=== PATIENT | female | born 1935 | race Caucasian/White ===

== ENCOUNTER → 2016-10-03 | Outpatient (CLI) | payer MEDICARE, OTHER | END | disposition home or self-care (01) | LOC: BFHH 12:43 | PROVIDERS: ATTEND Family Medicine | DX: I10 Essential (primary) hypertension (principal); E11.42 Type 2 diabetes mellitus with diabetic polyneuropathy ==

== ENCOUNTER 2017-01-11 03:44 | Emergency (ER) | payer MEDICARE, OTHER ==
--- NOTE | 2017-01-11 05:10 | CT ---
EXAM DESCRIPTION: Head CLINICAL HISTORY: tripped, fall from standing, some neck pain COMPARISON: March 31, 2016 TECHNIQUE: Contiguous axial images of the brain were obtained without the administration of intravenous contrast. This exam was performed according to our departmental dose-optimization program, which includes automated exposure control, adjustment of the mA and/or kV according to patient size and/or use of iterative reconstruction technique. FINDINGS: Focal area of increased attenuation at the level of the posterior interhemispheric fissure compatible with a small subdural hematoma. This measured approximately 4 mm in transverse diameter. Patient is status post left craniotomy. There is no mass effect. Areas of decreased attenuation within the periventricular and subcortical white matter are nonspecific osseous of small vessel disease. There is generalized atrophy. Ventricular system is within normal limits. There is adequate lara-white matter differentiation. There is no skull fracture. The visualized paranasal sinuses and mastoid air cells are within normal limits. IMPRESSION: Findings compatible with a small subdural hematoma at the level of the posterior interhemispheric fissure. There is no mass effect. Electronically signed by: Madhu Lujan MD 01/11/2017 5:11 AM CDT
--- NOTE | 2017-01-11 05:16 | CT ---
EXAM DESCRIPTION: CT CERVICAL SPINE CLINICAL HISTORY: tripped, fall from standing, some neck pain COMPARISON: None Available. TECHNIQUE: Contiguous axial images of the cervical spine were obtained followed by reconstruction images.This exam was performed according to our departmental dose-optimization program, which includes automated exposure control, adjustment of the mA and/or kV according to patient size and/or use of iterative reconstruction technique. FINDINGS: There is no acute fracture or subluxation. The prevertebral soft tissues are within normal limits. There are degenerative changes of the cervical spine with intervertebral disc space narrowing and osteophytic formation from C3-C4 to C7-T1. Large posterior osteophytic formation is noted at C5-C6 and C6-C7. Incidental note is of a 5 x 3.3 mm noncalcified pulmonary nodule within the medial aspect of the left upper lung, image 87. IMPRESSION: No acute fracture or subluxation. Degenerative changes. Noncalcified pulmonary nodule within the medial aspect of the left upper lung with mean diameter of 4 mm. 2017 Fleischner Society Recommendations for Single Solid Lung Nodule Follow-Up based on size (average of long- and short-axis diameters) <6 mm Low-Risk Patient: No routine follow-up <6 mm High-Risk Patient: Optional CT at 12 months Electronically signed by: Madhu uLjan MD 01/11/2017 5:16 AM CDT Workstation: [id number]
--- NOTE | 2017-01-11 05:47 | ED.PDOC ---
History of Present Illness - General Source: patient Exam Limitations: no limitations - History of Present Illness Initial Comments: the patient is an 81-year-old female presenting to the emergency room after having fallen at home while coming back to the bed from going to the bathroom. She apparently tripped and fell forward and hit was probably a nightstand with the back of her head behind her left ear. There was no loss of consciousness. She did have some trouble getting up but that was not new. No altered mental status. She is having some mild neck discomfort down around C3- C4 primarily in the paraspinal muscles and at the atlantooccipital junction. It is worse with palpation. She has no neurological changes. She moves all extremity as well. No new incontinence. The patient would not have presented to the emergency room if she had not had an intracranial hemorrhage several years ago that required evacuation. The patient apparently also fell yesterday. Looking back over her history she has had multiple falls in the past. Again upon arrival tonight here she appears to be at her baseline neurological status. The person that knows her has confirmed that. Timing/Duration: momentarily Severity: moderate Improving Factors: immobilization Worsening Factors: movement Associated Symptoms: denies symptoms <Gomez Luong L - Last Filed: 01/11/17 06:41> <Jamari Bill - Last Filed: 01/11/17 09:21> - General Chief Complaint: Trauma Stated Complaint: fall Time Seen by Provider: 01/11/17 04:14 - History of Present Illness Allergies/Adverse Reactions: Allergies Shellfish Allergy Allergy (Intermediate, Verified 12/28/15 16:33) Rash Unknown if allergic to IV contrast. Home Medications: Ambulatory Orders Alendronate Sodium [Fosamax] 70 mg PO WKLY 09/18/14 Atorvastatin Calcium [Lipitor] 20 mg PO BEDTIME 09/18/14 Furosemide [Lasix] 20 mg PO DAILY 09/18/14 Glimepiride 1 mg PO DAILY 09/18/14 Lamotrigine [Lamictal] 200 mg PO BID 09/18/14 Levetiracetam [Keppra] 500 mg PO BID 09/18/14 Mirtazapine [Remeron] 30 mg PO BEDTIME 09/18/14 Multiple Vitamins W/ Minerals [Multivitamin] 1 dose PO DAILY 09/18/14 Olmesartan Medoxomil [Benicar] 40 mg PO DAILY 09/18/14 Potassium Chloride Tab [Micro-K] 10 meq PO DAILY 09/18/14 Sitagliptin Phosphate [Januvia] 100 mg PO DAILY 09/18/14 Buspirone HCl 15 mg PO DAILY 02/04/16 Donepezil Hydrochloride [Aricept] 10 mg PO DAILY 02/04/16 Escitalopram [Lexapro] 10 mg PO DAILY 01/11/17 Oxybutynin Chloride 5 mg PO BID 01/11/17 Review of Systems - Review of Systems Constitutional: States: no symptoms reported EENTM: States: no symptoms reported Respiratory: States: no symptoms reported Cardiology: States: no symptoms reported Gastrointestinal/Abdominal: States: no symptoms reported Genitourinary: States: no symptoms reported Musculoskeletal: States: neck pain - mild as described above Skin: States: no symptoms reported Neurological: States: headache - very mild but only over the area where she impacted the nightstand Endocrine: States: no symptoms reported All other Systems: No Change from Baseline <Gomez Luong - Last Filed: 01/11/17 06:41> Past Medical History (General) - Patient Medical History Hx Seizures: Yes Hx Stroke: Yes Hx Dementia: No Hx Asthma: No Hx of COPD: Yes Hx Cardiac Disorders: Yes Hx Congestive Heart Failure: No Hx Pacemaker: No Hx Hypertension: Yes Hx Thyroid Disease: No Hx Diabetes: Yes Hx Gastroesophageal Reflux: No Hx Renal Disease: No Hx Cancer: Yes - Lung Hx of HIV: No Hx Hepatitis C: No Hx MRSA: No - Vaccination History Hx Tetanus, Diphtheria Vaccination: No Hx Influenza Vaccination: Yes Hx Pneumococcal Vaccination: Yes - Social History Hx Tobacco Use: No Hx Chewing Tobacco Use: No Hx Alcohol Use: No Hx Substance Use: No Hx Substance Use Treatment: No Hx Depression: No Feels Threatened In Home Enviroment: No Feels Threatened In a Relationship: No Hx Physical Abuse: No Hx Emotional Abuse: No Hx Suspected Abuse: No - Female History Patient is a Female of Child Bearing Age (10 -59 yrs old): No Patient : No <Gomez Luong - Last Filed: 01/11/17 06:41> Family Medical History - Family History Mother Family History: Unknown Living Status: Hx Family Asthma: No Hx Family Congestive Heart Failure: No Hx Family Hypertension: No Hx Family Stroke: No Hx Cardiac Disease: Yes Hx Family Diabetes: No Hx Family Cancer: Yes <Gomez Luong - Last Filed: 01/11/17 06:41> Physical Exam - Physical Exam General Appearance: Alert, Comfortable, No apparent distress Eye Exam: bilateral normal Ears, Nose, Throat: hearing grossly normal, normal ENT inspection, normal pharynx - no evidence of any basilar skull fracture. No evidence of CSF drainage from the nares or tympanic membranes. There is no crepitus over the impact area behind the left ear. No visible deformity or bruising. Neck: full range of motion, other - she does have areas of discomfort as described in the history of present illness. No evidence of significant step- offdeviation. Respiratory: chest non-tender, lungs clear, normal breath sounds, no respiratory distress, no accessory muscle use Cardiovascular/Chest: normal peripheral pulses, no edema, other - regular rate Peripheral Pulses: radial,right: 2+, radial,left: 2+, dorsalis pedis,right: 2+, dorsalis pedis,left: 2+, posterior tibialis,right: 2+, posterior tibialis,left: 2+ Gastrointestinal/Abdominal: non tender, soft Rectal Exam: deferred Back Exam: normal inspection, no CVA tenderness, no vertebral tenderness Extremity: normal range of motion, non-tender, normal inspection, no pedal edema , normal capillary refill 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 The patient is presenting due to a history of an intracranial hemorrhage in the distant past that required evacuation and the fact that she is having some mild neck discomfort after the fall. There was no loss of consciousness and the patient is having no new neurological abnormalities whatsoever. vital signs have been stable. CT scan of the cervical spine shows no evidence of any acute injury. She does have chronic changes. The cervical collar has been removed as it is causing her significantly more discomfort than leaving it off. the CT scan of the head shows a 4 mm posterior subdural hematoma. The timing of the scan was approximately 1 hour after the most recent fall and more than 24 hours after the fall before that. as this is at this point a very small hematoma, and the patient is clinically asymptomatic from it, the patient will be monitored here in the emergency room for an additional 3-4 hours and have the CT scan repeated. If there is minimal change in that timeframe then it may be appropriate contact Dr. Serna and arranged for admission and monitoring here for the next day or 2 given her history, and the low likelihood for the need for neurosurgical intervention. Baseline laboratory work has been sent. 01/11/17 06:41 the patient does have a mild worsening of her hyponatremia and anemia. These may be contributing to the falls over the last couple of days. The patient is receiving a small IV fluid bolus given her mild deterioration in renal function. Urinalysis is still pending at this time. The patient will be handed often followed by . - Results/Orders Results/Orders: Laboratory Tests 01/11/17 01/11/17 01/11/17 05:47 05:47 05:47 WBC 5.6 RBC 2.79 L Hgb 9.1 L Hct 26.2 L MCV 93.7 MCH 32.6 H MCHC 34.8 RDW 15.9 H Plt Count 205 MPV 6.6 L Absolute Neuts (auto) 4.60 Absolute Lymphs (auto) 0.40 L Absolute Monos (auto) 0.50 Absolute Eos (auto) 0.00 Absolute Basos (auto) 0.00 Neutrophils % 83.1 H Lymphocytes % 7.2 L Monocytes % 8.4 Eosinophils % 0.6 L Basophils % 0.7 PT 13.0 H INR 1.150 PTT (SP) 26.1 Sodium 130 L Potassium 4.8 Chloride 98 L Carbon Dioxide 27 Anion Gap 9.8 L BUN 17 Creatinine 1.40 H BUN/Creatinine Ratio 12.1 Random Glucose 188 H Serum Osmolality 267.3 L Calcium 8.6 Total Bilirubin 0.6 AST 17 ALT 14 Alkaline Phosphatase 56 Serum Total Protein 5.9 L Albumin 3.3 Globulin 2.6 Albumin/Globulin Ratio 1.3 - EKG/XRAY/CT CT Ordered: No CT Interpretation Call Back: No <Gomez Luong - Last Filed: 01/11/17 06:41> - Results/Orders Results/Orders: 0745h- easily arousable talking no focal neurodeficits ;no nausea,vomiting , blurry vision or headache. bucag 0750-repeat head ct ordered [id number] done stable midline subdural hematoma no progression no midline shift - EKG/XRAY/CT XRAY: c-spine ct disc narrowing with osteophte formation/radiologist. CT: head w/o-small subdural hematoma level of posterior interhemisoheric fissur CT Ordered: Yes - no mass effect noted <Jamari Bill - Last Filed: 01/11/17 09:21> Departure <Gomez Luong - Last Filed: 01/11/17 06:41> - Departure Time of Disposition: 09:19 - D/W Dr. Murray for transfer to [facility] <Jamari Bill R - Last Filed: 01/11/17 09:21> - Departure Clinical Impression: Subdural hematoma, acute Fall at home Qualifiers: Encounter type: initial encounter Qualified Code(s): W19.XXXA - Unspecified fall, initial encounter Disposition: Transfer to Hospital Condition: Fair Referrals: Noel Woods MD [Primary Care Provider] - 1-2 Weeks Home Medications: Ambulatory Orders Alendronate Sodium [Fosamax] 70 mg PO WKLY 09/18/14 Atorvastatin Calcium [Lipitor] 20 mg PO BEDTIME 09/18/14 Furosemide [Lasix] 20 mg PO DAILY 09/18/14 Glimepiride 1 mg PO DAILY 09/18/14 Lamotrigine [Lamictal] 200 mg PO BID 09/18/14 Levetiracetam [Keppra] 500 mg PO BID 09/18/14 Mirtazapine [Remeron] 30 mg PO BEDTIME 09/18/14 Multiple Vitamins W/ Minerals [Multivitamin] 1 dose PO DAILY 09/18/14 Olmesartan Medoxomil [Benicar] 40 mg PO DAILY 09/18/14 Potassium Chloride Tab [Micro-K] 10 meq PO DAILY 09/18/14 Sitagliptin Phosphate [Januvia] 100 mg PO DAILY 09/18/14 Buspirone HCl 15 mg PO DAILY 02/04/16 Donepezil Hydrochloride [Aricept] 10 mg PO DAILY 02/04/16 Escitalopram [Lexapro] 10 mg PO DAILY 01/11/17 Oxybutynin Chloride 5 mg PO BID 01/11/17
[2017-01-11] MEDS ORDERED: SODIUM CHLORIDE 0.9% 1000ML 750 ML IVS ONE (06:40)
--- NOTE | 2017-01-11 08:25 | CT ---
EXAM DESCRIPTION: Head CLINICAL HISTORY: 81 years, Female, Comparison of recent CT head; fall; bleed noted TECHNIQUE: 5mm slice thickness axial images through the brain were performed in the absence of intravenous contrast. This exam was performed according to our departmental dose-optimization program which includes use of Automated Exposure Control, adjustment of the mA and/or kV according to patient size and/or use of iterative reconstruction technique. COMPARISON: Head CT dated 01/11/2017 at 4:53 AM FINDINGS: Involutional changes are present. Hypoattenuation involves the periventricular deep white matter. A small focus of acute subdural hemorrhage lies along the midline falx (axial image 21). This hematoma measures up to 3 mm in diameter and extends over approximately 2.4 cm in length. No additional intracranial hemorrhage is seen. In the interval since the prior study, there has been no significant change. The lateral ventricles are not out of proportion to the degree of involution. The basal cisterns are patent. Vascular calcifications are present. The visualized paranasal sinuses and mastoid air cells are patent. No fracture is identified. Incidental note is made of previous left-sided craniotomy with a small focus of underlying encephalomalacia. IMPRESSION: Stable small midline subdural hematoma. Microvascular disease. Old left-sided craniotomy. Findings were discussed by Dr. Durham with Dr. Ji at 8:23 AM on 01/11/2017. Electronically signed by: Nadya Durham MD 01/11/2017 8:25 AM CDT
[2017-01-11 10:33] VITALS: BP 130/62; TEMP 97.7; O2SAT 97
== END 2017-01-11 10:15 | disposition short-term general hospital (02) ==
LOC: ER 03:44
DX: S06.5X0A Traumatic subdural hemorrhage without loss of consciousness, initial encounter (principal); J44.9 Chronic obstructive pulmonary disease, unspecified; Z86.73 Personal history of transient ischemic attack (TIA), and cerebral infarction without residual deficits; D64.9 Anemia, unspecified; E87.1 Hypo-osmolality and hyponatremia; E11.9 Type 2 diabetes mellitus without complications; Z85.118 Personal history of other malignant neoplasm of bronchus and lung; Z91.013 Allergy to seafood; Z79.899 Other long term (current) drug therapy; W01.190A Fall on same level from slipping, tripping and stumbling with subsequent striking against furniture, initial encounter; Y92.003 Bedroom of unspecified non-institutional (private) residence as the place of occurrence of the external cause
CPT/HCPCS: 36415; 70450; 72125; 80053; 85025; 85610; 85730; J7030

== ENCOUNTER → 2017-07-30 | Outpatient (CLI) | payer MEDICARE, MEDICAID | END | disposition home or self-care (01) | LOC: GMAH 11:22 | PROVIDERS: ATTEND Family Medicine | DX: E78.00 Pure hypercholesterolemia, unspecified (principal); I10 Essential (primary) hypertension; E11.9 Type 2 diabetes mellitus without complications ==

== ENCOUNTER → 2018-04-29 | Outpatient (CLI) | payer MEDICAID, MEDICARE, OTHER | LOC: NC 09:25 | PROVIDERS: ATTEND Family Medicine | DX: I10 Essential (primary) hypertension (principal); E11.40 Type 2 diabetes mellitus with diabetic neuropathy, unspecified; C34.90 Malignant neoplasm of unspecified part of unspecified bronchus or lung; F03.90 Unspecified dementia, unspecified severity, without behavioral disturbance, psychotic disturbance, mood disturbance, and anxiety ==

== ENCOUNTER 2019-02-01 03:50 | Emergency (ER) | payer MEDICARE, OTHER ==
--- NOTE | 2019-02-01 03:58 | ED.PDOC ---
History of Present Illness - General Chief Complaint: Trauma Stated Complaint: fall with skin tears Time Seen by Provider: 02/01/19 03:55 Source: patient - History of Present Illness Initial Comments: Patient fell this morning and struck her elbow. She also fell this evening and struck her knee. She has no pain complaints. Her daughter wanted her "checked out". She has quarter size skin tears on her right elbow and right know. Denies hitting her head. She does not take blood thinners. No other complaints. Timing/Duration: intermittent Severity: mild Worsening Factors: nothing Associated Symptoms: denies symptoms Allergies/Adverse Reactions: Allergies Shellfish Allergy Allergy (Intermediate, Verified 02/01/19 04:18) Rash Unknown if allergic to IV contrast. Home Medications: Ambulatory Orders Alendronate Sodium [Fosamax] 70 mg PO WKLY 09/18/14 Furosemide [Lasix] 20 mg PO ITA-OTH-DAY 09/18/14 Glimepiride 1 mg PO DAILY 09/18/14 Lamotrigine [Lamictal] 200 mg PO BID 09/18/14 Mirtazapine [Remeron] 30 mg PO BEDTIME 09/18/14 Multiple Vitamins W/ Minerals [Multivitamin] 1 dose PO DAILY 09/18/14 Olmesartan Medoxomil [Benicar] 40 mg PO DAILY 09/18/14 Potassium Chloride Tab [Micro-K] 10 meq PO ITA-OTH-DAY 09/18/14 Sitagliptin Phosphate [Januvia] 100 mg PO DAILY 09/18/14 Donepezil Hydrochloride [Aricept] 5 mg PO DAILY 02/04/16 Oxybutynin Chloride 5 mg PO BID 01/11/17 Clobetasol Propionate 0.05 % TOP BID 02/01/19 Ferrous Gluconate [Fergon] 240 mg PO DAILY 02/01/19 Ondansetron HCl [Zofran] 8 mg PO Q8HRS PRN 02/01/19 Sulfa/Trimeth 800/160 (Ds) Tab [Bactrim DS] 1 tablet PO BID #6 tablet 02/01/19 Review of Systems - Review of Systems Constitutional: States: no symptoms reported EENTM: States: no symptoms reported Respiratory: States: no symptoms reported Cardiology: States: no symptoms reported Gastrointestinal/Abdominal: States: no symptoms reported Genitourinary: States: no symptoms reported Musculoskeletal: States: see HPI Skin: States: see HPI Neurological: States: no symptoms reported Endocrine: States: no symptoms reported Hematologic/Lymphatic: States: no symptoms reported Past Medical History (General) - Patient Medical History Hx Seizures: Yes Hx Stroke: Yes Hx Dementia: No Hx Asthma: No Hx of COPD: Yes Hx Cardiac Disorders: Yes Hx Congestive Heart Failure: No Hx Pacemaker: No Hx Hypertension: Yes Hx Thyroid Disease: No Hx Diabetes: Yes Hx Gastroesophageal Reflux: No Hx Renal Disease: No Hx Cancer: Yes - Lung Hx of HIV: No Hx Hepatitis C: No Hx MRSA: No - Vaccination History Hx Tetanus, Diphtheria Vaccination: No Hx Influenza Vaccination: Yes Hx Pneumococcal Vaccination: Yes - Social History Hx Tobacco Use: No Hx Chewing Tobacco Use: No Hx Alcohol Use: No Hx Substance Use: No Hx Substance Use Treatment: No Hx Depression: No Hx Physical Abuse: No Hx Emotional Abuse: No Hx Suspected Abuse: No - Female History Patient : No Family Medical History - Family History Mother Family History: Unknown Living Status: Hx Family Asthma: No Hx Family Congestive Heart Failure: No Hx Family Hypertension: No Hx Family Stroke: No Hx Cardiac Disease: Yes Hx Family Diabetes: No Hx Family Cancer: Yes Physical Exam - Physical Exam General Appearance: Alert Eye Exam: bilateral normal Ears, Nose, Throat: normal ENT inspection Neck: non-tender, full range of motion, supple Respiratory: lungs clear, normal breath sounds Cardiovascular/Chest: normal peripheral pulses, regular rate, rhythm Gastrointestinal/Abdominal: normal bowel sounds, non tender, soft Extremity: normal range of motion, non-tender, other - quarter size skin tear on the posterior right elbow and anterior inferior right patella 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, no motor/sensory deficits, alert, normal mood/affect, oriented x 3 Skin Exam: other - see extremities Lymphatic: no adenopathy Progress - Progress Progress: 02/01/19 05:46 Laboratory Tests 02/01/19 02/01/19 02/01/19 03:59 03:59 05:15 WBC 7.3 RBC 3.91 L Hgb 13.3 Hct 37.1 MCV 94.8 MCH 34.0 H MCHC 35.8 RDW 13.3 Plt Count 210 MPV 6.6 L Absolute Neuts (auto) 6.30 Absolute Lymphs (auto) 0.60 L Absolute Monos (auto) 0.30 Absolute Eos (auto) 0.00 Absolute Basos (auto) 0.00 Neutrophils % 86.3 H Lymphocytes % 8.4 L Monocytes % 4.5 Eosinophils % 0.2 L Basophils % 0.6 Sodium 135 Potassium 3.9 Chloride 97 L Carbon Dioxide 23 Anion Gap 18.9 H BUN 9 Creatinine 1.10 BUN/Creatinine Ratio 8.2 L Random Glucose 310 H Serum Osmolality 280.5 Calcium 10.1 Urine Color Yellow Urine Appearance Sl cloudy Urine pH 6.0 Ur Specific [place] 1.015 Urine Protein 30 Urine Glucose (UA) 250 H Urine Ketones Negative Urine Blood Small H Urine Nitrite Positive H Urine Bilirubin Negative Urine Urobilinogen 0.2 Ur Leukocyte Esterase Small H Urine RBC 1-3 Urine WBC 30-40 H Ur Epithelial Cells 0-1 Urine Bacteria 4+ H CT head showed no acute disease. Radiographs of the right knee and elbow showed no dislocations nor fractures. UA showe UTI. Patient given Bactrim DS in the E.D. and RX for three days. Care instructions given. E.R. warnings given. Questions were elicited and answered. Patient and her daughter voiced understanding and agreement with the plan. Departure - Departure Clinical Impression: Contusion of scalp, Urinary tract infection, Multiple abrasions Disposition: Discharge to Home or Self Care Condition: Good Departure Forms: ED Discharge - Pt. Copy, Patient Portal Self Enrollment Instructions: DI for Trauma Diet: other - Increase oral fluids. Activity: as per physical therapy Referrals: Noel Woods MD [Primary Care Provider] - 1-2 Weeks Prescriptions: Sulfa/Trimeth 800/160 (Ds) Tab [Bactrim DS] 1 tablet PO BID #6 tablet Home Medications: Ambulatory Orders Alendronate Sodium [Fosamax] 70 mg PO WKLY 09/18/14 Furosemide [Lasix] 20 mg PO ITA-OTH-DAY 09/18/14 Glimepiride 1 mg PO DAILY 09/18/14 Lamotrigine [Lamictal] 200 mg PO BID 09/18/14 Mirtazapine [Remeron] 30 mg PO BEDTIME 09/18/14 Multiple Vitamins W/ Minerals [Multivitamin] 1 dose PO DAILY 09/18/14 Olmesartan Medoxomil [Benicar] 40 mg PO DAILY 09/18/14 Potassium Chloride Tab [Micro-K] 10 meq PO ITA-OTH-DAY 09/18/14 Sitagliptin Phosphate [Januvia] 100 mg PO DAILY 09/18/14 Donepezil Hydrochloride [Aricept] 5 mg PO DAILY 02/04/16 Oxybutynin Chloride 5 mg PO BID 01/11/17 Clobetasol Propionate 0.05 % TOP BID 02/01/19 Ferrous Gluconate [Fergon] 240 mg PO DAILY 02/01/19 Ondansetron HCl [Zofran] 8 mg PO Q8HRS PRN 02/01/19 Sulfa/Trimeth 800/160 (Ds) Tab [Bactrim DS] 1 tablet PO BID #6 tablet 02/01/19 Additional Instructions: Increase oral fluids. See your regular doctor in 4 days to retest urine.
[2019-02-01 04:33] VITALS: TEMP 98.5
--- NOTE | 2019-02-01 05:07 | RAD ---
EXAM DESCRIPTION: Elbow,Right 3 Views CLINICAL HISTORY: fall/injury COMPARISON: None. FINDINGS: 3 views of the right elbow. Osteopenia. No acute fracture or dislocation. Normal osseous mineralization. No joint effusion. IMPRESSION: 1. No acute fracture. Electronically signed by: Jovany Potts 02/01/2019 5:05 AM CDT
--- NOTE | 2019-02-01 05:09 | RAD ---
EXAM DESCRIPTION: Knee,Right Complete CLINICAL HISTORY: fall/injury COMPARISON: None. FINDINGS: 3 views of the right knee. Osteopenia. No acute fracture or dislocation. Mild medial compartment joint space narrowing. No definite joint effusion. IMPRESSION: 1. No acute fracture or dislocation. Electronically signed by: Jovany Potts 02/01/2019 5:07 AM CDT
--- NOTE | 2019-02-01 05:13 | CT ---
EXAM DESCRIPTION: CT of the head without contrast CLINICAL HISTORY: fall/injury COMPARISON: 02/16/2016 TECHNIQUE: Axial CT of the head obtained from the skull apex to the skull base without contrast. FINDINGS: No acute intracranial hemorrhage identified. No mass, mass effect, shift of the midline, abnormal extra-axial fluid collection or CT evidence of acute ischemic change identified. The ventricular system and sulcal spaces are mildly enlarged compatible with mild cerebral atrophy. Scattered areas of hypodensity throughout the supratentorial white matter are nonspecific and may be related to chronic small vessel ischemic change. The visualized paranasal sinuses and the mastoids are clear. Left lateral convexity craniotomy. Visualized orbits and globes are unremarkable. Atherosclerotic calcification of the intracranial internal carotid arteries. DLP: 859.97 mGy-cm IMPRESSION: 1. No acute intracranial abnormality by CT criteria. This exam was performed according to our departmental dose-optimization program, which includes automated exposure control, adjustment of the mA and/or kV according to patient size and/or use of iterative reconstruction technique. Electronically signed by: Jovany Potts 02/01/2019 5:11 AM CDT
[2019-02-01 05:37] VITALS: BP 169/74; O2SAT 96
[2019-02-01] MEDS ORDERED: SULFA/TRIMETH 800/160 (DS) TAB 1 EA TAB PO ONE ×2 (05:43→05:48)
[2019-02-01] MEDS ORDERED: NEOMYCIN-BACITRACIN-POLYMYXIN 0.9 GM UD TOP ONE (05:58)
== END 2019-02-01 06:16 | disposition home or self-care (01) ==
LOC: ER 03:50
DX: S00.93XA Contusion of unspecified part of head, initial encounter (principal); S51.011A Laceration without foreign body of right elbow, initial encounter; S81.011A Laceration without foreign body, right knee, initial encounter; N39.0 Urinary tract infection, site not specified; R56.9 Unspecified convulsions; J44.9 Chronic obstructive pulmonary disease, unspecified; I51.9 Heart disease, unspecified; I10 Essential (primary) hypertension; E11.9 Type 2 diabetes mellitus without complications; Z86.73 Personal history of transient ischemic attack (TIA), and cerebral infarction without residual deficits; Z85.118 Personal history of other malignant neoplasm of bronchus and lung; Z79.899 Other long term (current) drug therapy; Y92.9 Unspecified place or not applicable

== ENCOUNTER → 2020-06-22 | Outpatient (CLI) | payer MEDICARE | LOC: GT 20:32 | PROVIDERS: ATTEND Family Medicine | DX: B34.2 Coronavirus infection, unspecified (principal); R71.8 Other abnormality of red blood cells; R09.02 Hypoxemia ==

== ENCOUNTER 2020-07-03 10:33 | Emergency (ER) | payer MEDICARE ==
--- NOTE | 2020-07-03 12:29 | RAD ---
EXAM DESCRIPTION: Chest,1 View CLINICAL HISTORY: 84 years Female, cough, COVID + COMPARISON: Chest radiograph 02/04/2019 TECHNIQUE: Single view radiograph of the chest. IMPRESSION: Normal size cardiac silhouette. Partially calcified aorta. Lungs appear hyperinflated. Interstitial opacification in the lung bases may represent infection such as pneumonia or aspiration. Chronic blunting of the left costophrenic angle. No pneumothorax. Thoracic spondylosis. Age-indeterminate posterior right rib fractures, ribs 7, 8, 9, and 10. Correlate for tenderness and recent history of trauma. Electronically signed by: Daniel Ng MD 07/03/2020 12:27 PM NETBACKUP ADMINISTRATOR
--- NOTE | 2020-07-03 13:26 | ED.PDOC ---
History of Present Illness - General Chief Complaint: Respiratory Problem Stated Complaint: Pt with cough Time Seen by Provider: 07/03/20 12:15 Source: patient, RN notes reviewed, Vital Signs reviewed, [facility] records Exam Limitations: no limitations - History of Present Illness Initial Comments: Patient is an 84-year-old woman from the [facility] who presents with compl aints of cough and intermittent shortness of breath. Patient states she is feeling fine now and does not understand why the [facility] sent her over. Per the [facility] her oxygen saturation was 90% on room air. They did not give her any oxygen therapy. She denies any back pain. She does have increased cough that is nonproductive. This is been ongoing for months. Timing/Duration: 1 week Severity: mild Improving Factors: nothing Worsening Factors: nothing Associated Symptoms: cough, shortness of breath Allergies/Adverse Reactions: Allergies Shellfish Allergy Allergy (Intermediate, Verified 02/04/19 03:36) Rash Unknown if allergic to IV contrast. Metformin Adverse Reaction (Verified 02/04/19 03:40) Home Medications: Ambulatory Orders Alendronate Sodium [Fosamax] 70 mg PO WKLY 09/18/14 Furosemide [Lasix] 20 mg PO ITA-OTH-DAY 09/18/14 Glimepiride 1 mg PO DAILY 09/18/14 Lamotrigine [Lamictal] 200 mg PO BID 09/18/14 Mirtazapine [Remeron] 30 mg PO BEDTIME 09/18/14 Multiple Vitamins W/ Minerals [Multivitamin] 1 dose PO DAILY 09/18/14 Olmesartan Medoxomil [Benicar] 40 mg PO DAILY 09/18/14 Potassium Chloride Tab [Micro-K] 10 meq PO ITA-OTH-DAY 09/18/14 Sitagliptin Phosphate [Januvia] 100 mg PO DAILY 09/18/14 Donepezil Hydrochloride [Aricept] 5 mg PO DAILY 02/04/16 Oxybutynin Chloride 5 mg PO BID 01/11/17 Clobetasol Propionate 0.05 % TOP BID 02/01/19 Ferrous Gluconate [Fergon] 240 mg PO DAILY 02/01/19 Ondansetron HCl [Zofran] 8 mg PO Q8HRS PRN 02/01/19 Cyclobenzaprine HCl [Flexeril] 5 mg PO TID PRN #30 tab 02/05/19 Azithromycin [Zithromax Z-Donell] 250 mg PO DAILY #6 tab 07/03/20 Review of Systems - Review of Systems Constitutional: States: see HPI, weakness. Denies: chills, fever, malaise EENTM: States: no symptoms reported. Denies: eye pain, blurred vision, double vision Respiratory: States: see HPI, cough, short of breath. Denies: stridor, wheezing Cardiology: States: no symptoms reported. Denies: chest pain, palpitations, syncope Gastrointestinal/Abdominal: States: no symptoms reported. Denies: abdominal pain, diarrhea, nausea, vomiting Genitourinary: States: no symptoms reported. Denies: dysuria, frequency Musculoskeletal: States: no symptoms reported. Denies: back pain, joint pain, neck pain Skin: States: no symptoms reported. Denies: change in color, rash Neurological: States: see HPI, weakness. Denies: tingling, tremors Endocrine: States: no symptoms reported. Denies: increased hunger, increased thirst, increased urine Hematologic/Lymphatic: States: no symptoms reported All other Systems: No Change from Baseline Past Medical History (General) - Patient Medical History Hx Seizures: Yes Hx Stroke: Yes Hx Dementia: No Hx Asthma: No Hx of COPD: Yes Hx Cardiac Disorders: Yes Hx Congestive Heart Failure: No Hx Pacemaker: No Hx Hypertension: Yes Hx Thyroid Disease: No Hx Diabetes: Yes Hx Gastroesophageal Reflux: No Hx Renal Disease: Yes Hx Cancer: Yes - Lung Hx of HIV: No Hx Hepatitis C: No Hx MRSA: No - Vaccination History Hx Tetanus, Diphtheria Vaccination: Yes Hx Influenza Vaccination: Yes Hx Pneumococcal Vaccination: Yes - Social History Hx Tobacco Use: No Hx Chewing Tobacco Use: No Hx Alcohol Use: No Hx Substance Use: No Hx Substance Use Treatment: No Hx Depression: No Hx Physical Abuse: No Hx Emotional Abuse: No Hx Suspected Abuse: No - Activities of Daily Living [facility] [place] - Female History Patient is a Female of Child Bearing Age (10 -59 yrs old): No Patient : No Family Medical History - Family History Mother Family History: Unknown Living Status: Hx Family Asthma: No Hx Family Congestive Heart Failure: No Hx Family Hypertension: No Hx Family Stroke: No Hx Cardiac Disease: Yes Hx Family Diabetes: No Hx Family Cancer: Yes Physical Exam - Physical Exam General Appearance: Alert, Anxious, Well Developed, Well Groomed, Well Hydrated, Well Nourished Eye Exam: bilateral normal Ears, Nose, Throat: hearing grossly normal, normal pharynx Neck: non-tender, full range of motion, supple Respiratory: chest non-tender, no respiratory distress, decreased breath sounds - Diffusely throughout, rhonchi - Diffusely in the bases., other - Patient is 90% on room air. It improved to 95% on 2 L via nasal cannula. Cardiovascular/Chest: normal peripheral pulses, regular rate, rhythm, no edema, no gallop, no JVD, no murmur Peripheral Pulses: radial,right: 2+, radial,left: 2+ Gastrointestinal/Abdominal: normal bowel sounds, non tender, soft Back Exam: no CVA tenderness, no vertebral tenderness, other - Kyphosis Extremity: normal range of motion, non-tender Neurologic: magneto repairer II-XII nml as tested, no motor/sensory deficits, alert, normal mood/affect, oriented x 3 Skin Exam: normal color, warm/dry Lymphatic: no adenopathy Progress - Progress Progress: Differential diagnosis: Covid, pneumonia, viral URI with cough, pneumothorax among others. 07/03/20 13:30 Patient with known Covid. Chest x-ray shows atelectasis versus infiltrate. It is possible that this is pneumonia and I will treat her with a prescription of Zithromax. I suspect this is all Covid related. She does have some mild hypoxia that is improved with oxygen therapy. Plan on discharge back to the [facility] and they can start her on oxygen therapy. I discussed this plan of care with the patient she voices understanding and agreement. 07/03/20 13:33 Chest x-ray does did note that she has some age-indeterminate rib fractures. She is nontender along those ribs and I suspect that these are old or subacute. Andry Fournier M.D. #[id number] - Results/Orders Results/Orders: EXAM DESCRIPTION: Chest,1 View CLINICAL HISTORY: 84 years Female, cough, COVID + COMPARISON: Chest radiograph 02/04/2019 TECHNIQUE: Single view radiograph of the chest. IMPRESSION: Normal size cardiac silhouette. Partially calcified aorta. Lungs appear hyperinflated. Interstitial opacification in the lung bases may represent infection such as pneumonia or aspiration. Chronic blunting of the left costophrenic angle. No pneumothorax. Thoracic spondylosis. Age- indeterminate posterior right rib fractures, ribs 7, 8, 9, and 10. Correlate for tenderness and recent history of trauma. Electronically signed by: Daniel Ng MD 07/03/2020 12:27 PM CROWN BLOCKER Vital Signs 07/03/20 07/03/20 07/03/20 11:00 12:00 13:00 Temperature 98.9 F Pulse Rate [ 85 82 78 Pulse Ox] Respiratory 18 18 18 Rate Blood Pressure 141/67 138/62 142/68 [R ARm] O2 Sat by Pulse 90 L 91 L 92 L Oximetry Departure - Departure Clinical Impression: COVID-19, Atypical pneumonia Ribs, multiple fractures Qualifiers: Encounter type: initial encounter Fracture type: closed Laterality: right Qualified Code(s): S22.41XA - Multiple fractures of ribs, right side, initial encounter for closed fracture Time of Disposition: 13:34 Disposition: Discharge to SNF Condition: Fair Departure Forms: ED Discharge - Pt. Copy, Patient Portal Self Enrollment Instructions: Pneumonia, Adult (DC), Coronavirus Disease 2019 (COVID-19), Rib Fracture (DC) Diet: resume usual diet Activity: as per physical therapy Referrals: RAHEEL COPE [Primary Care Provider] - 1-5 Days Prescriptions: Azithromycin [Zithromax Z-Donell] 250 mg PO DAILY #6 tab Home Medications: Ambulatory Orders Alendronate Sodium [Fosamax] 70 mg PO WKLY 09/18/14 Furosemide [Lasix] 20 mg PO ITA-OTH-DAY 09/18/14 Glimepiride 1 mg PO DAILY 09/18/14 Lamotrigine [Lamictal] 200 mg PO BID 09/18/14 Mirtazapine [Remeron] 30 mg PO BEDTIME 09/18/14 Multiple Vitamins W/ Minerals [Multivitamin] 1 dose PO DAILY 09/18/14 Olmesartan Medoxomil [Benicar] 40 mg PO DAILY 09/18/14 Potassium Chloride Tab [Micro-K] 10 meq PO ITA-OTH-DAY 09/18/14 Sitagliptin Phosphate [Januvia] 100 mg PO DAILY 09/18/14 Donepezil Hydrochloride [Aricept] 5 mg PO DAILY 02/04/16 Oxybutynin Chloride 5 mg PO BID 01/11/17 Clobetasol Propionate 0.05 % TOP BID 02/01/19 Ferrous Gluconate [Fergon] 240 mg PO DAILY 02/01/19 Ondansetron HCl [Zofran] 8 mg PO Q8HRS PRN 02/01/19 Cyclobenzaprine HCl [Flexeril] 5 mg PO TID PRN #30 tab 02/05/19 Azithromycin [Zithromax Z-Donell] 250 mg PO DAILY #6 tab 07/03/20 Additional Instructions: pt to start oxygen, 2-4 L via [place] to keep sats >90%.
[2020-07-03 13:50] VITALS: BP 125/66; TEMP 97.8; O2SAT 93
== END 2020-07-03 13:48 ==
LOC: ER 10:33
DX: U07.1 COVID-19 (principal); J12.89 Other viral pneumonia; S22.41XA Multiple fractures of ribs, right side, initial encounter for closed fracture; R09.02 Hypoxemia; I12.9 Hypertensive chronic kidney disease with stage 1 through stage 4 chronic kidney disease, or unspecified chronic kidney disease; N18.9 Chronic kidney disease, unspecified; E11.22 Type 2 diabetes mellitus with diabetic chronic kidney disease; I51.9 Heart disease, unspecified; J44.9 Chronic obstructive pulmonary disease, unspecified; R56.9 Unspecified convulsions; Z86.73 Personal history of transient ischemic attack (TIA), and cerebral infarction without residual deficits; Z85.118 Personal history of other malignant neoplasm of bronchus and lung; Z79.899 Other long term (current) drug therapy; Z88.8 Allergy status to other drugs, medicaments and biological substances; Z91.013 Allergy to seafood; X58.XXXA Exposure to other specified factors, initial encounter; Y92.9 Unspecified place or not applicable

== ENCOUNTER → 2020-07-24 | Outpatient (CLI) | payer MEDICARE | LOC: GT 18:20 | PROVIDERS: ATTEND Internal Medicine | DX: N39.0 Urinary tract infection, site not specified (principal) ==

== ENCOUNTER → 2020-08-31 | Outpatient (CLI) | payer MEDICARE, OTHER | LOC: GT 12:14 | PROVIDERS: ATTEND Internal Medicine | DX: R30.0 Dysuria (principal) ==